=== PATIENT | female | born 1960 | race Caucasian/White ===

== ENCOUNTER 2019-07-30 09:45 | Day surgery (SDC) | payer OTHER ==
[~2019-07-30] VITALS: Ht 177.8 cm; Wt 84.1 kg
== END 2019-07-30 12:13 | disposition home or self-care (01) ==
LOC: CACL 09:45
PROVIDERS: ATTEND Internal Medicine Cardiovascular Disease
DX: R55 Syncope and collapse (principal); E78.5 Hyperlipidemia, unspecified; F17.210 Nicotine dependence, cigarettes, uncomplicated; Z88.8 Allergy status to other drugs, medicaments and biological substances
CPT/HCPCS: 93660